=== PATIENT | male | born 1960 | race Caucasian/White ===

== ENCOUNTER → 2018-10-25 | Outpatient (CLI) | payer OTHER ==
[~2018-10-25] MED LIST: AMITRIPTYLINE H10 M3 PO; IBUPROFEN 400400 M1 PO; MEDROLDOSEPACK PO; MOBIC15 MG PO; VIT B12
--- NOTE | ~2018-10-25 | PAINCON ---
[address] [address] PAIN MANAGEMENT CONSULTATION Name: BONY SALGADO [id number] Admission: 10/25/18 Attend Phys: Roger Morales MD Discharge: Date of : 56 Report #: [id number] THIS REPORT FOR: //name// CC: Roger Moreno DATE OF SERVICE: 10/25/2018 CHIEF COMPLAINT: Lumbar back pain with stiffness and a burning pain in the feet at times. HISTORY: The patient is a 58-year-old gentleman, who has been referred to the pain clinic because of chronic pain in the lumbar area as well as some neuropathic type pain in his feet. He has had pain since 10/2017, it involves his low back, which had some soreness and stiffness. He has pain, which involves some burning in his low feet. He notes that the pain is worse when he is lifting, somewhat improved with rest. He describes it as continuous, steady, burning, and aching. He rates it as a 3/10 today, oftentimes 5/10. He denies any specific trauma. He has some back pain in the left and right paraspinous area in the low back near his hips. He has history of Raynaud's syndrome, but this is usually not very problematic. 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 He has tried muscle relaxants. He had x-rays. He states that his pain comes and goes. He would like to take the least amount of medication possible. PAST MEDICAL HISTORY: Raynaud's syndrome for 7-8 years. He does note some changes in his fingers, particularly during the cold winter months. He is an active bicyclist. PAST SURGICAL HISTORY: He has knee surgery in 1975 and 1982, shoulder surgery in 2004. CURRENT MEDICATIONS 1. Ibuprofen. 2. Vitamin B12. ALLERGIES: No known drug allergies. 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 He is working at this juncture. REVIEW OF SYSTEMS: Generally, in good health, wears glasses, hearing loss/ringing in the ears, pain musculoskeletal involving muscle cramping, back pain, difficulty walking, joint stiffness, joint pain, and numbness and tingling [place] [address] PAIN MANAGEMENT CONSULTATION Name: BONY SALGADO Room: [facility]#: [id number] Admission: 10/25/18 Attend Phys: Roger Morales MD Discharge: Date of : 56 Report #: [id number] PAIN CLINIC ASSESSMENT AND PQRS: 1. The patient is not being treated for osteoarthritis or rheumatoid arthritis. 2. Pain intensity is 3/10. 3. Blood thinner. The patient is not on a blood thinning medication. 4. Fall. The patient has not fallen in the last 3 months. 5. Hypertension. The patient is not being treated for hypertension. 6. Opioids greater than 6 weeks. The patient is not on an opioid regimen. 7. Risk assessment tool, low for opioid use. 8. Functional assessment tool. Pain impact score is 28/70. 9. Recreational drug use. The patient denies use of recreational drugs. 10. Tobacco: The patient does not smoke. 11. Alcohol. The patient denies frequent use of alcoholic beverages. PHYSICAL EXAMINATION: GENERAL: The patient is a well-developed, well-nourished white male. He appears his stated age. He is alert and oriented x 3. Affect is appropriate. Speech is fluent. Height is 5 feet 7 inches, weight is 171 pounds, and BMI is 26.8. VITAL SIGNS: Blood pressure is 119/64, heart rate is 55, respiratory rate is 16, room air saturation is 97%, and temperature is 98.1. HEENT: Normocephalic, atraumatic. Extraocular eye muscles intact. Sclerae nonicteric. Mucous membranes moist. NECK: Without adenopathy or JVD. MUSCULOSKELETAL: Upper extremity muscle strength is judged to be 5/5 for the major muscle groups in the upper extremity. The patient is without significant scoliosis, kyphosis, or lordosis. Deep tendon reflexes are +1 at the biceps bilaterally. The patient has pain and discomfort in lower portion of his back near the left and right posterior superior iliac spine areas. Also, complains of pain and burning sensation in the plantar portions of his feet. LABORATORY DATA: X-ray of the lumbar spine, AP and lateral with obliques dated 01/06/2017, indication is back pain. Comparison of MRI from outside facility, 12/12/2016. The vertebral alignment is normal. Transitional lumbosacral segment is better visualized on an MRI. There is a patchy sclerosis along the left pedicle and pars interarticularis at L5, suggesting evolution of stress changes demonstrated on a prior MRI. There is suggestion of a subtle ____ particularly extending along the dorsal aspect of the L5 pars interarticularis, concerning for development of pars defect since the prior MRI. Faint pedicle and pars sclerosis are also seen at the right L5 level. Less evident on the left. The disk spaces are preserved. The sacroiliac joints are normal. No soft tissue abnormality. Impression: Subtle lucency partially extending through the dorsal right L5 pars interarticularis, concerning for development of pars defect. Left greater than right pedicle and pars sclerosis at L5 were most compatible with evolution of stress change demonstrated on prior MRI. MRI of the lumbar spine without contrast dated 10/11/2018: [place] [address] PAIN MANAGEMENT CONSULTATION Name: BONY SALGADO Room: [facility]#: [id number] Admission: 10/25/18 Attend Phys: Roger Morales MD Discharge: Date of : 56 Report #: [id number] l. L1-L2: Mild facet hypertrophy, intervertebral disk is unremarkable. Thecal sac is intact. Thecal sac is 1.3 cm AP. 2. L2-L3: Mild facet hypertrophy, circumferential bulging annulus, narrowing of the neural foramen. Lateral recesses are intact. Thecal sac is 1.3 cm AP. 3. L3-L4: Intervertebral disk facets and foramen appear normal. Thecal sac is 1.4 cm AP. 4. L4-L5: Circumferential bulging annulus, facet hypertrophy, and marked narrowing of the neural foramen. 5. Flattening of the thecal sac. Thecal sac is 1.3 cm AP. 6. L5-S1: Mild facet hypertrophy. No protrusion is seen. Neural foramen are intact. Nerve roots are intact. Thecal sac is 1.3 cm AP. IMPRESSION: 1. Chronic pain with numbness in feet, bilateral as well as back stiffness and soreness. 2. Raynaud's syndrome involving his hands and his feet. RECOMMENDATIONS: We have discussed treatment options with the patient. The patient is not interested in taking a lot of medications. We have discussed the usual treatments for neuropathic types of pain. It appears that he has neuropathic type of pain. Use of gabapentin, Lyrica, or sometimes medication such as amitriptyline have been helpful. The patient would like to try the most conservative approach. He will be given a Medrol Dosepak to take in the interim. Hopefully, he will notice benefit from this. He will call us if he has any concerns. We will also try Mobic 15 mg 1 p.o. daily and amitriptyline 10 mg at bedtime to help with his discomfort. We would like to thank you for letting us to participate in his care. We hope he continues to improve and continue with his active lifestyle. By: [id number]. Dirk Morales MD /[place]
== END ==
LOC: M.PC 13:00
DX: G89.29 Other chronic pain (principal); M53.86 Other specified dorsopathies, lumbar region; Z79.899 Other long term (current) drug therapy; Z79.891 Long term (current) use of opiate analgesic